=== PATIENT | female | born 1970 | race Caucasian/White ===

== ENCOUNTER → 2022-12-30 | Outpatient (CLI) | payer BC, OTHER ==
[2022-12-30 12:07] LABS: HEMATOCRIT 41 % (35-52); HEMOGLOBIN 13.7 g/dL (11.5-16.0); MEAN CORPUSCULAR HEMOGLOBIN 33 pg (25-34); MEAN CORPUSCULAR HGB CONC 34 g/dL (32-36); MEAN CORPUSCULAR VOLUME 98 fL (80-99); PLATELET COUNT 321 10^3/uL (130-400); WHITE BLOOD COUNT 5.7 10^3/uL (4.3-11.0)
[2022-12-30 12:17] LABS: ALBUMIN 4.8 GM/DL (3.2-4.5); CHLORIDE 104 MMOL/L (98-107); POTASSIUM 4.1 MMOL/L (3.6-5.0); SODIUM 139 MMOL/L (135-145)
[2022-12-30 12:18] LABS: CALCIUM 10.2 MG/DL (8.5-10.1)
[2022-12-30 12:19] LABS: GLUCOSE 85 MG/DL (70-105)
[2022-12-30 12:20] LABS: CARBON DIOXIDE 26 MMOL/L (21-32)
[2022-12-30 12:23] LABS: ALKALINE PHOSPHATASE 54 U/L (40-136); CREATININE SERUM 0.81 MG/DL (0.60-1.30); GFR ESTIMATED 88
[2022-12-30 12:24] LABS: BUN/CREATININE RATIO 20
[2022-12-30 12:26] LABS: ALANINE AMINOTRANSFERASE 12 U/L (0-55)
[2022-12-30 12:30] LABS: BILIRUBIN,TOTAL 1.3 MG/DL (0.1-1.0)
[2022-12-30 13:05] LABS: ERYTHROCYTE SEDIMENTATION RATE 8 MM/HR (0-30)
--- NOTE | 2022-12-30 17:15 | Diagnostic Imaging Report ---
EXAMINATION: Bilateral hands, three views each. HISTORY: Arthritis. COMPARISON: None available. FINDINGS: The alignment of both hands is normal. No fracture is seen in either hand. Joint spaces in both hands are normal. No erosions are seen. IMPRESSION: Normal joint spaces. Dictated by: Dictated on workstation # [id number]
== END ==
LOC: RAD 11:47
PROVIDERS: ATTEND Surgery
DX: M79.642 Pain in left hand (principal); M79.641 Pain in right hand; R53.83 Other fatigue; M25.50 Pain in unspecified joint
CPT/HCPCS: 36415; 80053; 85027; 85652; 86431